=== PATIENT | female | born 1985 | race American Indian/Alaskan Native ===

== ENCOUNTER 2017-02-28 21:49 | Emergency (ER) | payer OTHER ==
[2017-02-28 21:49] VITALS: BMI 33.0
[2017-02-28 22:19] VITALS: RESP 16
[2017-02-28] MEDS ORDERED: Sodium Chloride 0.9% 1,000 ML IV ONE (22:50)
[2017-02-28] MEDS ORDERED: Acetaminophen 650mg/20.3ml solution UD ONE (22:57)
[2017-02-28] MEDS ORDERED: Sodium Chloride 0.9% 1,000 ML ONE (22:57)
[2017-02-28 23:02] LABS: BASO # 0.1 K/uL (0.0-0.2); BASO % 0.4 % (0.0-2.0); EOS % 0.2 % (0.0-4.0); HEMATOCRIT 39.8 % (34.0-47.0); LYMPH # 0.6 K/uL (1.0-4.3); LYMPH % 4.1 % (20.0-40.0); MEAN CELL VOLUME 95.2 fL (81.0-99.0); MEAN CORPUSCULAR HEMOGLOBIN 31.3 pg (27.0-31.0); MEAN CORPUSCULAR HGB CONC 32.9 g/dL (33.0-37.0); MEAN PLATELET VOLUME 11.4 fL (7.2-11.7); MONO # 0.8 K/uL (0.0-0.8); MONO % 5.2 % (0.0-10.0); PLATELET COUNT 158 K/uL (130-400); WHITE BLOOD COUNT 14.8 K/uL (4.8-10.8)
[2017-02-28 23:08] LABS: CHLORIDE 97 mmol/L (98-107)
[2017-02-28 23:09] LABS: POTASSIUM 3.1 mmol/L (3.6-5.2); SODIUM 136 mmol/L (132-148)
[2017-02-28 23:11] LABS: ALKALINE PHOSPHATASE 73 U/L (38-126); AST/SGOT 34 U/L (14-36); BILIRUBIN,TOTAL 1.2 mg/dL (0.2-1.3); BLOOD UREA NITROGEN 7 mg/dL (7-17); CARBON DIOXIDE 26 mmol/L (22-30); GFR AFRICAN-AMERICAN > 60; GLUCOSE,RANDOM 106 mg/dL (65-105); TOTAL PROTEIN 8.9 g/dL (6.3-8.3)
[2017-02-28 23:12] LABS: ALT/SGPT 28 U/L (9-52)
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
[2017-02-28 23:38] LABS: NEUTROPHIL 90 % (50-75); TOTAL CELLS COUNTED 100
[2017-02-28] MEDS ORDERED: Amoxicillin-Clav 875-125 mg Tab PO STA (23:41)
[2017-03-01] MEDS ORDERED: Amoxicillin-Clav 875-125 mg Tab PO ONE (00:14)
[2017-03-01 00:21] VITALS: BP 124/75; PULSE 110; TEMP 99.6; O2SAT 97
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
--- NOTE | 2017-03-01 07:44 | RAD ---
PROCEDURE: CHEST RADIOGRAPH, 1 VIEW HISTORY: SOB COMPARISON: Comparison is made to 07/13/2014 FINDINGS: LUNGS: No evidence of new infiltrate or consolidation in the lungs. PLEURA: No pneumothorax or pleural fluid seen. CARDIOVASCULAR: Normal. OSSEOUS STRUCTURES: No significant abnormalities. VISUALIZED UPPER ABDOMEN: Normal. OTHER FINDINGS: Round densities overlying the shoulder likely outside the patient's body. IMPRESSION: No active disease.
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
--- NOTE | 2017-03-04 10:14 | CARD ---
APPROVED REPORT EKG Measurement Heart [id number] <Conclusion> Sinus tachycardia Nonspecific T wave abnormality Abnormal ECG
== END 2017-03-01 00:22 | disposition home or self-care (01) ==
LOC: C.ER 21:49
DX: S16.1XXA Strain of muscle, fascia and tendon at neck level, initial encounter (principal); V89.2XXA Person injured in unspecified motor-vehicle accident, traffic, initial encounter; J03.90 Acute tonsillitis, unspecified
CPT/HCPCS: 70450; 71010; 72125; 80053; 84702; 85025; 87040; 87070; 93005; 96360; 99285; J7040

== ENCOUNTER 2018-02-28 11:05 | Emergency (ER) | payer OTHER ==
[2018-02-28 11:05] VITALS: BMI 33.0
[2018-02-28 11:12] VITALS: BP 131/94; O2SAT 100
[2018-02-28 11:28] VITALS: TEMP 98.5
[2018-02-28] MEDS ORDERED: DiphenhydrAMINE 50 mg/ml Inj IM STA (11:31)
--- NOTE | 2018-02-28 11:35 | C.PDOC ---
History Of Present Illness 33 yo female w/o significant PMHx come in accompanied by mother for evaluation of " locked jaw" gradually developed since today AM. As per mom, " she is unable to open her mouth now". Pt pointing to B/L maseter muscle and reports pain. Mom reports, similar sx in past " last year had similar episode, was treated with Benadryl shot". Otherwise, pt and mom denies recent illness, fever , chills, headache, dizziness, visual changes, focal deficits,denies hx of allergy in past, denies sore throat, drooling, trismus, recent dental work, CP, SOB, dyspnea, diaphoresis, denies any other active complaints, denies known trauma or injury. Ambulate to Ed for evaluation, not in nay apparent distress. Time Seen by Provider: 02/28/18 11:12 Chief Complaint (Nursing): Dental Pain History Per: Patient Past Medical History Reviewed: Historical Data, Nursing Documentation, Vital Signs Vital Signs: Last Vital Signs Temp 98.5 F 02/28/18 11:21 Pulse 92 H 02/28/18 11:10 Resp 20 02/28/18 11:10 BP 131/94 H 02/28/18 11:10 Pulse Ox 100 02/28/18 11:38 - Medical History PMH: Asthma Denies: Chronic Kidney Disease Surgical History: - [facility] Procedures LOW CERVICAL (09/02/13) Family History: States: Unknown Family Hx - Social History Hx Tobacco Use: Yes Hx Alcohol Use: Yes Hx Substance Use: No - Immunization History Hx Tetanus Toxoid Vaccination: No Hx Influenza Vaccination: No Hx Pneumococcal Vaccination: No Review Of Systems Except As Marked, All Systems Reviewed And Found Negative. Constitutional: Negative for: Fever, Chills Eyes: Negative for: Redness ENT: Positive for: Mouth Pain. Negative for: Ear Discharge, Nose Discharge, Throat Pain, Throat Swelling Cardiovascular: Negative for: Chest Pain Respiratory: Negative for: Cough, Shortness of Breath, Wheezing Gastrointestinal: Negative for: Nausea, Vomiting, Abdominal Pain, Diarrhea Musculoskeletal: Negative for: Neck Pain, Back Pain Skin: Negative for: Rash Neurological: Negative for: Weakness, Numbness, Altered Mental Status, Headache , Dizziness Physical Exam - Physical Exam Appears: Well, Non-toxic, No Acute Distress Skin: Normal Color, Warm, Dry, No Rash, No Ecchymosis Head: Atraumatic, Normacephalic Eye(s): bilateral: PERRL Ear(s): Bilateral: Normal Nose: No Flaring, No Discharge Oral Mucosa: No Drooling, No Trismus, Other (B/L maseter muscle tenderness with mod spasm. No palpable defomrity, no skin cnages.) Throat: Other (unable to evaluate, masseter spasm B/L) Neck: Trachea Midline, No Midline Cervical Tenderness, No Paracervical Tenderness, No Step Off Deformity, Supple Chest: Symmetrical Cardiovascular: Rhythm Regular Respiratory: No Decreased Breath Sounds, No Accessory Muscle Use, No Stridor, No Wheezing Back: No CVA Tenderness, No Paraspinal Tenderness Extremity: Normal ROM, No Deformity, No Swelling Neurological/Psych: Oriented x3, Normal Speech, Normal Cognition, Normal Motor, Normal Sensation, Normal Reflexes ED Course And Treatment - Laboratory Results Urine POC: Negative O2 Sat by Pulse Oximetry: 100 Pulse Ox Interpretation: Normal Progress Note: On re-evaluation, pt is afebrile, hemodynamicaly stable. NOn- toxic. Pt able to open her mouth and speak without difficulty. Pt admits, " feel much better". Tolerate po well in Ed. Pt reports now, "last time was in [facility] [place] told me it may be stress relaited". Pt admits, " under a lot of stress lately". [id number] RA. neck: Supple, (-) JVD, (-) carotid bruits B/ L. ENT: no acute findings, uvul amidline, no edema. Lungs: CTA B/L, BS equal B /L. Abd: benign, (-) guarding, (-) rebound. back: (-) CVA tenderness. Neuorlogicaly intact. Pt has clinical findings c/w masseter muscle spasm, resolved. Pt advised on course of ds. ref. to f/u with PMD in 2-3 days for re- eval. return to ED if any worsening or new changes. Disposition Counseled Patient/Family Regarding: Studies Performed, Diagnosis, Need For Followup, Rx Given - Disposition Referrals: [facility] [Outside] Disposition: HOME/ ROUTINE Disposition Time: 12:04 Condition: STABLE Additional Instructions: Take Benadryl at home once 50 mg at bedtime Follow up with PMD in 2-3 days for re-evaluation. return to ED if any worsening or new changes. Instructions: Muscle Spasms (DC) Forms: [facility] (Welsh) - Clinical Impression Clinical Impression: Muscle spasm
[2018-02-28] MEDS ORDERED: DiphenhydrAMINE 50 mg/ml Inj ONE (11:36)
[2018-02-28 11:56] LABS: HCG,QUALITATIVE URINE NEGATIVE (NEGATIVE)
[2018-02-28 11:59] LABS: SQUAMOUS EPITHIAL 2 /hpf (0-5); URINE BILIRUBIN NEGATIVE (NEGATIVE); URINE BLOOD NEGATIVE (NEGATIVE); URINE CLARITY Clear (Clear); URINE COLOR Yellow (YELLOW); URINE GLUCOSE (UA) NORMAL (Normal); URINE LEUKOCYTE ESTERASE 1+ Leu/uL (Negative); URINE PROTEIN NEGATIVE (NEGATIVE)
[2018-02-28 12:10] LABS: BARBITURATES, UR NEGATIVE (NEGATIVE); BENZODIAZEPINES, UR NEGATIVE (NEGATIVE); OPIATES, UR NEGATIVE (NEGATIVE); PHENCYCLIDINE, UR NEGATIVE (NEGATIVE)
[2018-02-28 12:17] VITALS: PULSE 80; RESP 16
== END 2018-02-28 12:16 | disposition home or self-care (01) ==
LOC: C.ER 11:05
DX: M62.838 Other muscle spasm (principal)
CPT/HCPCS: 80324; 80345; 80346; 80349; 80353; 80358; 80361; 81001; 83992; 84703; 96372; 99283; J1200